=== PATIENT | male | born 1995 | race Caucasian/White ===

== ENCOUNTER → 2024-03-26 | Outpatient (REF) | payer OTHER ==
[~2024-03-26] MED LIST: IOPAMIDOL 370 MG/ML 100 ML INFUS..BTL INJ ONE
[2024-03-26 13:56] LABS: CREATININE, SERUM 0.95 mg/dL (0.72-1.25)
== END ==
LOC: CT 12:56
PROVIDERS: ATTEND Internal Medicine
DX: R79.1 Abnormal coagulation profile (principal); R79.89 Other specified abnormal findings of blood chemistry
CPT/HCPCS: 36415; 71260; 82565; 84520; Q9967

== ENCOUNTER 2024-03-31 10:09 | Emergency (ER) | payer OTHER ==
[~2024-03-31] VITALS: Ht 180.3 cm; Wt 90.7 kg
[2024-03-31 10:14] VITALS: TEMP 98.3
[2024-03-31] MEDS ORDERED: SODIUM CHLORIDE FLUSH 10 ML SYR IV PRN (10:15)
[2024-03-31 10:38] LABS: BASOPHILS % 0.1 % (0.0-1.0); EOSINOPHILS # (AUTO) 0.1 (0.0-0.4); HEMATOCRIT 42.7 % (38.2-49.6); HEMOGLOBIN 14.8 g/dL (14.0-18.0); LYMPHOCYTES # (AUTO) 1.9 (1.0-3.2); LYMPHOCYTES % 27.3 % (18.0-39.1); MEAN CORPUSCULAR HEMOGLOBIN 30.1 pg (28-32); MEAN CORPUSCULAR HGB CONC 34.7 g/dL (31-35); MEAN CORPUSCULAR VOLUME 86.8 fL (81-99); MONOCYTES # (AUTO) 0.5 (0.2-0.8); MONOCYTES % 7.4 % (4.4-11.3); NEUTROPHILS # (AUTO) 4.5 (2.1-6.9); NEUTROPHILS % 63.1 % (38.7-80.0); PLATELET COUNT 273 x10e3/uL (140-360); RED BLOOD COUNT 4.92 x10e6/uL (4.3-5.7); RED CELL DISTRIBUTION WIDTH 12.6 % (11.7-14.4); WHITE BLOOD COUNT 7.07 x10e3/uL (4.8-10.8)
[2024-03-31 10:57] LABS: ALANINE AMINOTRANSFERASE 38 IU/L (0-55); ALBUMIN/GLOBULIN RATIO 1.6 (0.8-2.0); ALKALINE PHOSPHATASE 89 IU/L (40-150); ANION GAP 13.8 mmol/L (8-16); BLOOD UREA NITROGEN 18 mg/dL (7-26); BUN/CREATININE RATIO 19 (6-25); CALCIUM 9.8 mg/dL (8.4-10.2); CARBON DIOXIDE 24 mmol/L (22-29); CHLORIDE 104 mmol/L (98-107); CREATININE, SERUM 0.94 mg/dL (0.72-1.25); EST GLOMERULAR FILTRATION RATE 112 ML/MIN (>=60); GLUCOSE 101 mg/dL (74-118); MAGNESIUM 1.9 MG/DL (1.3-2.1); POTASSIUM 3.8 mmol/L (3.5-5.1); SODIUM 138 mmol/L (136-145); TOTAL PROTEIN 8.1 g/dL (6.5-8.1)
[2024-03-31 11:16] LABS: TROPONIN I < 0.001 ng/mL (0-0.300)
[2024-03-31 11:39] VITALS: PULSE 80; RESP 17; O2SAT 98
[2024-03-31 15:45] VITALS: PULSE 81; RESP 16
[2024-03-31 16:19] VITALS: BP 138/94; PULSE 77; RESP 16; O2SAT 99
== END 2024-03-31 16:19 | disposition home or self-care (01) ==
LOC: ER 10:12
DX: R06.00 Dyspnea, unspecified (principal); R07.89 Other chest pain; E78.5 Hyperlipidemia, unspecified
CPT/HCPCS: 36415; 71045; 80053; 83735; 83880; 84484; 85025; 85379; 93005; 93970; 94760; 94799; 99284